=== PATIENT | male | born 1995 | race Caucasian/White ===

== ENCOUNTER → 2019-07-05 | Outpatient (CLI) | payer BC, OTHER ==
[2019-07-05 17:45] LABS: THYROID STIMULATING HORMONE 0.941 uIU/ML (0.358-3.740); THYROXINE (T4) 6.8 UG/DL (4.5-12.0)
== END ==
LOC: M ADAMS 10:58
PROVIDERS: ATTEND Internal Medicine
DX: N52.9 Male erectile dysfunction, unspecified (principal)

== ENCOUNTER → 2019-11-16 | Outpatient (CLI) | payer BC, OTHER ==
[2019-11-16 17:39] LABS: HEMATOCRIT 49.1 % (42.0-52.0); HEMOGLOBIN 15.6 g/dl (13.5-17.5); MEAN CORPUSCULAR HEMOGLOBIN 28.8 pg (27.0-33.0); MEAN CORPUSCULAR HGB CONC 31.8 g/dl (32.0-36.5); MEAN CORPUSCULAR VOLUME 90.6 fl (80.0-96.0); PLATELET COUNT, AUTOMATED 237 10^3/uL (150-450); RED BLOOD COUNT 5.42 10^6/uL (4.30-6.10); WHITE BLOOD COUNT 7.2 10^3/uL (4.0-10.0)
[2019-11-16 18:16] LABS: ALT/SGPT 29 U/L (12-78); BILIRUBIN,TOTAL 0.7 MG/DL (0.2-1.0); BLOOD UREA NITROGEN 17 MG/DL (7-18); CALCIUM LEVEL 8.7 MG/DL (8.5-10.1); CARBON DIOXIDE LEVEL 26 MEQ/L (21-32); CHLORIDE LEVEL 108 MEQ/L (98-107); CHOLESTEROL LEVEL 202 MG/DL (<200); CREATININE FOR GFR 0.93 MG/DL (0.70-1.30); GLOMERULAR FILTRATION RATE > 60.0 (>60); GLUCOSE, FASTING 88 MG/DL (70-100); HDL CHOLESTEROL 54 MG/DL (>40); LDL CHOLESTEROL 140 MG/DL (<100); NON-HDL-C 148 MG/DL; POTASSIUM SERUM 4.3 MEQ/L (3.5-5.1); SODIUM LEVEL 140 MEQ/L (136-145); TOTAL PROTEIN 7.3 GM/DL (6.4-8.2); TRIGLYCERIDES LEVEL 42 MG/DL (<150)
== END ==
LOC: M WUC 12:39
PROVIDERS: ATTEND Internal Medicine
DX: Z00.00 Encounter for general adult medical examination without abnormal findings (principal)

== ENCOUNTER → 2019-12-11 | Outpatient (CLI) | payer BC, OTHER ==
--- NOTE | 2019-12-11 16:09 | REP ---
Clinical: Contusion. Technique: AP, lateral, bilateral oblique views of the left foot. Findings: There is a transverse nondisplaced fracture through the base of the fifth metatarsal bone with overlying soft tissue swelling. Remainder of the examination appears normal. Impression: Transverse nondisplaced fracture at the base of the fifth metatarsal bone. Electronically Signed by Pj Flores MD 12/11/2019 04:00 P
== END ==
LOC: M WUC 15:43
PROVIDERS: ATTEND Physician Assistant
DX: S90.32XA Contusion of left foot, initial encounter (principal); W18.30XA Fall on same level, unspecified, initial encounter; Y92.9 Unspecified place or not applicable

== ENCOUNTER → 2019-12-11 | Outpatient (CLI) | payer OTHER ==
[2019-12-15 18:07] LABS: HSV IgM TYPES 1&2 <0.91 Ratio (0.00-0.90)
== END ==
LOC: M WUC 11:37
PROVIDERS: ATTEND Internal Medicine
DX: B00.9 Herpesviral infection, unspecified (principal)

== ENCOUNTER → 2023-08-03 | Outpatient (CLI) | payer BC ==
[2023-08-03 16:59] LABS: HEMATOCRIT 48.6 % (42.0-52.0); HEMOGLOBIN 15.5 g/dl (13.5-17.5); MEAN CORPUSCULAR HEMOGLOBIN 27.8 pg (27.0-33.0); MEAN CORPUSCULAR HGB CONC 31.9 g/dl (32.0-36.5); MEAN CORPUSCULAR VOLUME 87.1 fl (80.0-96.0); PLATELET COUNT, AUTOMATED 176 10^3/uL (150-450); RED BLOOD COUNT 5.58 10^6/uL (4.30-6.10); WHITE BLOOD COUNT 4.2 10^3/uL (4.0-10.0)
[2023-08-03 17:02] LABS: HEMATOCRIT 48.6 % (42.0-52.0)
[2023-08-03 17:16] LABS: ALBUMIN 3.6 G/DL (3.2-5.2); ALKALINE PHOSPHATASE 108 U/L (46-116); ALT/SGPT 64 U/L (7.0-40); AST/SGOT 29 U/L (<34); BILIRUBIN,TOTAL 0.8 MG/DL (0.3-1.2); BLOOD UREA NITROGEN 8 MG/DL (9-23); CALCIUM LEVEL 8.8 MG/DL (8.5-10.1); CARBON DIOXIDE LEVEL 26 MMOL/L (20-31); CHLORIDE LEVEL 109 MMOL/L (98-107); CREATININE FOR GFR 0.74 MG/DL (0.70-1.30); GLOMERULAR FILTRATION RATE > 60.0 (>60); GLUCOSE, FASTING 80 MG/DL (60-100); IRON (FE) 33 UG/DL (65-175); PERCENT SATURATION 11.6 % (19.7-50.0); PHOSPHORUS LEVEL 3.9 MG/DL (2.5-4.9); POTASSIUM SERUM 3.3 MMOL/L (3.5-5.1); SODIUM LEVEL 144 MMOL/L (136-145); TOTAL IRON BINDING CAPACITY 284 UG/DL (250-425); TOTAL PROTEIN 6.4 G/DL (5.7-8.2)
[2023-08-03 17:17] LABS: FERRITIN 132.4 NG/ML (10.5-307.3)
[2023-08-03 17:18] LABS: VITAMIN B12 LEVEL 1225 PG/ML (211-911)
[2023-08-03 17:30] LABS: HEMOGLOBIN A1c 4.9 % (4.0-6.0)
== END ==
LOC: M LAB 15:50
PROVIDERS: ATTEND Physician Assistant Surgical
DX: Z98.84 Bariatric surgery status (principal)

== ENCOUNTER 2025-01-10 13:09 | Emergency (ER) | payer BC ==
[~2025-01-10] VITALS: Ht 177.8 cm; Wt 60.7 kg
[2025-01-10] MEDS ORDERED: FLUO-365 (13:20)
[2025-01-10] MEDS ORDERED: PANT40TA29 (13:20)
[2025-01-10] MEDS: LIDOCAINE 1% MDV 20 ML VIAL SC ONE (15:15)
[2025-01-10] MEDS: TETANUS/DIPHTH/ACEL. PERTUSSIS 0.5 ML SYR IM ONE (15:20)
[2025-01-10 15:49] VITALS: BP 125/74; TEMP 98; O2SAT 99
== END 2025-01-10 15:55 | disposition home or self-care (01) ==
LOC: M ED 13:09
DX: S61.011A Laceration without foreign body of right thumb without damage to nail, initial encounter (principal); W26.8XXA Contact with other sharp object(s), not elsewhere classified, initial encounter; F41.9 Anxiety disorder, unspecified; Z98.84 Bariatric surgery status; Z88.0 Allergy status to penicillin; Z79.899 Other long term (current) drug therapy; Z23 Encounter for immunization; Y99.9 Unspecified external cause status; Y92.009 Unspecified place in unspecified non-institutional (private) residence as the place of occurrence of the external cause; Y93.89 Activity, other specified